=== PATIENT | male | born 1970 | race Asian ===

== ENCOUNTER 2017-11-10 11:01 | Emergency (ER) | payer MEDICAID ==
--- NOTE | 2017-11-10 11:31 | ED Physician Chart ---
ED Chief Complaint/HPI - Patient Information Date Seen:: 11/10/17 Time Seen:: 11:17 Chief Complaint:: NECK STIFFNESS AND PAIN History of Present Illness:: This 47-year-old male presents with a three-day history of severe pain in his neck and stiffness. The onset of the pain was sudden and was not associated with any traumatic injuries or movement. The patient rates the severity of the pain as a 10 over 10 and it is worse with any flexion or rotation of the neck. It is also worse when he swallows. He tried a hot shower with minimal if any relief. He has no associated weakness or numbness in the upper or lower extremities. He denies any associated fever, chills or headache. He denies any nausea, vomiting or diarrhea. Allergies:: Allergies Allergy/AdvReac Type Severity Reaction Status Date / Time No Known Allergies Allergy Verified 06/30/16 01:52 Vitals:: Vital Signs - 8 hr 11/10/17 11:09 Temp 99.1 F HR 98 RR 16 BP 146/84 O2 Sat % 98 ED Review of Systems - Review of Systems General/Constitutional: No fever, No chills, No diaphoresis Skin: No skin lesions, No rash Head: No headache, No light-headedness Eyes: No loss of vision, No diplopia ENT: No earache, Sore throat, No tinnitus Neck: Neck pain, No swelling, Stiffness, No mass noted Cardio Vascular: No chest pain, No palpitations, No orthopnea, No edema Pulmonary: No SOB, No cough, No sputum, No wheezing GI: No nausea, No vomiting, No diarrhea, No pain G/U: No dysuria, No frequency, No hematuria Musculoskeletal: Other (no spinal pain except for in the neck. Also has muscle pain in the neck.) Psychiatric: Prior psych history, No depression, No anxiety, No suicidal ideation Hematopoietic: No bruising, No lymphadenopathy Allergic/Immuno: No urticaria, No angioedema Neurological: No syncope, No focal symptoms, No weakness, No paresthesia, No headache, No dizziness, No confusion, No vertigo ED Past Medical History - Past Medical History Past Medical History: No significant medical hx Social History: Smoker, No Alcohol, No Drug Use, , Employed Psychiatricy History: None Family Medical History - Family Member Mother History Unknown: Yes Ethnicity: Unknown Living Status: Unknown Hx Family Cancer: No Hx Family Coronary Artery Disease: No Hx Family Congestive Heart Failure: No Hx Family Hypertension: No Hx Family Stroke: No Hx Family Diabetes: No Hx Family Seizures: No Hx Family Dementia: No Hx Family AIDS: No Hx Family HIV: No Hx Family COPD: No Hx Family Hepatitis: No Hx Family Psychiatric Problems: No Hx Family Tuberculosis: No ED Physical Exam - Physical Examination General/Constitutional: Awake, Well-developed, well-nourished, Alert, Non-toxic appearing, Ambulatory Head: Atraumatic Eyes: Lids, conjuctiva normal, PERRL, EOMI Other Eyes comments:: No nystagmus and no scleral icterus. Skin: Nl inspection, No rash, No skin lesions, No ecchymosis ENMT: External ears, nose nl, TM canals nl, Nasal exam nl, Lips, teeth, gums nl , Oropharynx nl, Tonsils nl Other ENMT comments:: There was inflammation in the posterior pharynx and no peritonsillar swelling or masses. Neck: No JVD Other Neck comments:: Patient has tenderness to palpation diffusely in the C-spine region. There is also paraspinous muscle spasm bilaterally. No tenderness along the course for the jugular vein. Good pulses in both carotids with no bruits. No cervical masses or lymphadenopathy. Respiratory: Nl effort/Exclusion, No Wheeze/Rhonchi/Rales Cardio Vascular: RRR, No murmur, gallop, rubs, NL S1 S2 Other Cardio Vascular comments:: Good pulses in all 4 extremities. GI: No tenderness/rebounding/guarding, No organomegaly, No hernia, Normal BS's, Nondistended, No mass/bruits, No McBurney tenderness Other GI comments:: Rectal examination deferred at my discretion. : No CVA tenderness Extremities: No tenderness or effusion, Full ROM, normal strength in all extremities, No edema Other Extremities comments:: Excellent strength in both the upper and lower extremities. ED Labs/Radiology/EKG Results - Lab Results Results: CT C-SPINE: NO FRACTURE OR SUBLUXATION. NO SOFT TISSUE FINDINGS. POSITIVE FOR DJD. NO LAB STUDIES WERE INDICATED. ED Assessment - Assessment General Assessment: CASE SUMMARY: THIS 47 YEAR OLD MALE PRESENTS WITH A 3 DAY HISTORY OF NONTRAUMATIC NECK PAIN AND STIFFNESS. HE TRIED HOT SHOWERS FOR RELIEF WITH MINIMAL EFFECT. HE ALSO HAS PAIN WHEN SWALLOWING. NO RELIEVING FACTORS. ON PHYSICAL EXAMINATION HE HAS TENDERNESS OVER THE CERVICAL SPINE WHICH IS DIFFUSE. HE ALSO HAS MARKED LIMITATION OF FLEXION AND BOTH RIGHT AND LEFT LATERAL ROTATION. NO CERVICAL MASSES OR LYMPHADENOPATHY PRESENT. HIS NEUROLOGIC EXAMINATION WAS NORMAL WITH EXTREMELY GOOD MOTOR. NO SENSORY DEFICIT. THE BALANCE OF THE PHYSICAL EXAMINATION WAS UNREMARKABLE. CT SCAN OF THE CERVICAL SPINE WAS NEGATIVE FOR ANY TRAUMATIC FRACTURES OR SUBLUXATION. THERE IS NO COMMENT ON SOFT TISSUES BUT THERE WERE NO PERITONSILLAR MASSES OR SWELLING. THE PATIENT'S SYMPTOMS WERE ADDRESSED WITH IV ZOFRAN AND MORPHINE AND IV TORADOL. THE PATIENT WAS DISCHARGED WITH PRESCRIPTION FOR NORCO 7.5/325 , DISPENSED 20 WITH THE USUAL PRECAUTIONS AGAINST MIXING IT WITH ALCOHOL AND TAKING IT WITHIN 6 HOURS OF DRIVING OR ACTIVITIES REQUIRING ALERTNESS. DISCHARGED WITH INSTRUCTIONS TO FOLLOW-UP WITH HIS PRIMARY CARE PHYSICIAN IF HIS SYMPTOMS HAVE NOT RESOLVED OR MARKEDLY IMPROVED WITHIN THE NEXT WEEK. HE WAS FURTHER ADVISED TO RETURN TO THE EMERGENCY DEPARTMENT IF THERE WAS ANY WORSENING OF SYMPTOMS OR NEW ONSET OF WEAKNESS OR NUMBNESS. MDM DDX FOR NECK PAIN AND STIFFNESS: NOT meningitis based on the patient's history and physical exam .NOT peritonsillar abscess based on physical examination. NOT LEMIERRE'S SYNDROME based on no tenderness along the course of the jugular vein. NOT retropharyngeal abscess based on negative CT scan of the neck. ED Septic Shock - . Is Septic Shock (SBP<90, OR Lactate>4 mmol\L) present?: No - <6hrs of presentation: Vital Signs: Vital Signs - 8 hr 11/10/17 11:09 Temp 99.1 F HR 98 RR 16 BP 146/84 O2 Sat % 98 ED Reassessment (Disposition) - Reassessment Reassessment Condition:: Improved - Diagnosis Diagnosis:: DJD OF C-SPINE. WRY NECK. - Aftercare/Follow up Instructions Aftercare/Follow-Up Instructions:: Counseled pt regarding lab results/diagnosis & need follow up, Refer to Discharge Instructions - Patient Disposition Discharge/Transfer:: Home ED Discharge Plan - Patient Disposition Instructions: Cervical Sprain, [id number]
[2017-11-10] MEDS ORDERED: Morphine Sulfate 4 mg/mL 1mL Syr IVP ONE (11:36)
[2017-11-10] MEDS ORDERED: Morphine Sulfate 4 mg/mL 1mL Syr ONE (11:38)
--- NOTE | 2017-11-11 09:54 | Diagnostic Imaging Report ---
CT cervical spine without IV contrast HISTORY: Severe neck pain and stiffness for 3 days COMPARISON: None Technique: Axial images were obtained from the skull base to the upper thoracic spine without IV contrast. Multiplanar reconstructions were made. Total DLP: 532, [id number] FINDINGS: Images of the cervical spine obtained without contrast demonstrate no evidence of an acute fracture or subluxation. Mild to moderate degenerative changes are seen with multilevel disc osteophyte spurring greatest at C6/C7 measuring 2 to 3 mm. There is mild disc space loss of height at C6/C7. No prevertebral soft tissue swelling. The lung apices are clear. IMPRESSION: No evidence of acute fracture or subluxation patent. Mild to moderate degenerative changes, greatest at C5/C6.
== END 2017-11-10 14:10 | disposition home or self-care (01) ==
LOC: ER 11:01
DX: M47.892 Other spondylosis, cervical region (principal); F17.200 Nicotine dependence, unspecified, uncomplicated
CPT/HCPCS: 99284; 96374; 96375; 72125; J1885; J2405; J7030; Z7502

== ENCOUNTER 2017-11-11 11:50 | Emergency (ER) | payer MEDICAID ==
--- NOTE | 2017-11-11 11:58 | ED Physician Chart ---
ED Chief Complaint/HPI - Patient Information Date Seen:: 11/11/17 Time Seen:: 11:58 Chief Complaint:: Neck pain History of Present Illness:: 47 yo male had neck pain for 5 days. He came to ER a day ago and received work up. His CT c-spine showed mild to moderate degenerative changes worst at C5-C6 level. He was given Toradol in the ER and was discharged home. The prescribed medication [place] did not relieve the pain. Icing seemed relieve the pain. Currently, his neck pain with movement of neck was 7/10. There was significant neck tightness and limited ROM. Allergies:: Allergies Allergy/AdvReac Type Severity Reaction Status Date / Time No Known Allergies Allergy Verified 06/30/16 01:52 ED Review of Systems - Review of Systems General/Constitutional: No fever, No chills Skin: No skin lesions Head: No headache Eyes: No pain ENT: No nasal drainage Neck: Neck pain Pulmonary: No SOB GI: No nausea, No vomiting Psychiatric: No prior psych history ED Past Medical History - Past Medical History Past Medical History: No significant medical hx Social History: Smoker, No Alcohol, No Drug Use Surgical History: Cholecystectomy Family Medical History - Family Member Mother History Unknown: Yes Ethnicity: Unknown Living Status: Unknown Hx Family Cancer: No Hx Family Coronary Artery Disease: No Hx Family Congestive Heart Failure: No Hx Family Hypertension: No Hx Family Stroke: No Hx Family Diabetes: No Hx Family Seizures: No Hx Family Dementia: No Hx Family AIDS: No Hx Family HIV: No Hx Family COPD: No Hx Family Hepatitis: No Hx Family Psychiatric Problems: No Hx Family Tuberculosis: No ED Physical Exam - Physical Examination General/Constitutional: Awake, Alert Eyes: PERRL Skin: No skin lesions ENMT: Nasal exam nl Other Neck comments:: limited and painful ROM, neck extension 10 degree, neck flexion 5 degree, right rotation 10 degree, left rotation 10 degree Respiratory: Clear to Auscultation Cardio Vascular: RRR, No murmur, gallop, rubs, NL S1 S2 GI: No tenderness/rebounding/guarding Extremities: normal strength in all extremities Neuro/Psych: No focal deficits ED Assessment - Assessment General Assessment: Neck pain likely due to muscle spasm Assessment/Comments:: Flexeril 10 mg PO Toradol 30 mg IM Neck pain and muscle spasm relieved D/c home Flexeril 5mg PO q12h prn for spasm F/u PCP or return to ER if symptoms worsen ED Septic Shock - . Is Septic Shock (SBP<90, OR Lactate>4 mmol\L) present?: No ED Reassessment (Disposition) - Reassessment Reassessment Condition:: Improved - Patient Disposition Discharge/Transfer:: Home ED Discharge Plan - Patient Disposition Admit/Discharge/Transfer: PT DISCHARGED HOME Condition at Disposition: Stable Prescriptions: Cyclobenzaprine [Flexeril] 5 mg PO Q12H PRN #10 tab PRN Reason: Spasms Instructions: Cervical Sprain, [id number] Additional Instructions: MAKE A FOLLOW UP WITH PRIMARY MEDICAL DOCTOR TOMORROW, COMPLY WITH PRESCRIBED MEDICATION AND DO NOT DRIVE WHILE ON MEDICATION, GO BACK TO EMERGENCY ROOM IF SYMPTOMS WORSEN.
== END 2017-11-11 13:20 | disposition home or self-care (01) ==
LOC: ER 11:50
DX: M54.2 Cervicalgia (principal); F17.200 Nicotine dependence, unspecified, uncomplicated
CPT/HCPCS: 99283; 96372; J1885; Z7502; Z7610